=== PATIENT | female | born 1945 | race Hispanic/Latino ===

== ENCOUNTER 2022-07-05 13:35 | Emergency (ER) | payer MEDICARE ==
[~2022-07-05] VITALS: Ht 160 cm; Wt 85.4 kg
[2022-07-05] MEDS ORDERED: ACETAMINOPHEN 325 MG TAB PO ONE (14:15)
[2022-07-05] MEDS ORDERED: ACETAMINOPHEN 325 MG TAB ONE (14:21)
[2022-07-05] MEDS ORDERED: HYDRALAZINE HCL25 MG PO (14:24)
[2022-07-05] MEDS ORDERED: GLIPIZIDE5 MG PO (14:25)
[2022-07-05] MEDS ORDERED: ALENDRONATE SOD70 MG (14:31)
[2022-07-05] MEDS ORDERED: PIOGLITAZONE HC45 MG PO (14:31)
[2022-07-05] MEDS ORDERED: AMLODIPINE BESYL5 MG PO (14:31)
[2022-07-05] MEDS ORDERED: PLAVIX75 MG PO (14:31)
[2022-07-05] MEDS ORDERED: OMEPRAZOLE40 MG PO (14:31)
[2022-07-05] MEDS ORDERED: HYDROCHLOROTHIA50 MG (14:31)
[2022-07-05] MEDS ORDERED: MICARDIS80 MG PO (14:31)
== END 2022-07-05 16:33 | disposition home or self-care (01) ==
LOC: FSED 13:38
DX: S00.03XA Contusion of scalp, initial encounter (principal); S50.01XA Contusion of right elbow, initial encounter; S22.41XA Multiple fractures of ribs, right side, initial encounter for closed fracture; W01.0XXA Fall on same level from slipping, tripping and stumbling without subsequent striking against object, initial encounter; Y93.01 Activity, walking, marching and hiking; Y92.89 Other specified places as the place of occurrence of the external cause; I10 Essential (primary) hypertension; E11.9 Type 2 diabetes mellitus without complications; E78.5 Hyperlipidemia, unspecified; I51.7 Cardiomegaly
CPT/HCPCS: 70450; 71250; 72125; 99283